=== PATIENT | female | born 1980 | race Caucasian/White ===

== ENCOUNTER 2021-06-22 07:02 | Outpatient (CLI) | payer OTHER ==
[~2021-06-22] VITALS: Ht 160 cm; Wt 71.8 kg
[~2021-06-22 07:02] MED LIST: CLOT21CR6 VG; FERR325T18 PO; HYDR1TAB PO; KETO-22 PO; NITR-65 PO; NITR100C3 PO; PHEN200T27 PO; SULF1TAB38 PO; TYLENOL; [UNRECOGNIZED DRUG - REMARK]
== END 2021-06-23 14:56 | disposition home or self-care (01) ==
LOC: PREOP 07:02
PROVIDERS: ATTEND Obstetrics & Gynecology
DX: Z01.818 Encounter for other preprocedural examination (principal)

== ENCOUNTER 2021-06-30 06:10 | Day surgery (SDC) | payer OTHER ==
[~2021-06-30] VITALS: Ht 160 cm; Wt 71.8 kg
[2021-06-30] VITALS (12 sets, daily range): BP systolic 112–132; BP diastolic 56–79
[2021-06-30] MEDS ORDERED: ceFAZolin INJECTION 1,000 MG in WATER (STERILE) FOR INJECTION 10 ML IV ONE (06:30)
[2021-06-30] MEDS: LACTATED RINGERS 1,000 ML IV PRN ×4 (06:54→19:42)
[2021-06-30 07:04] LABS: BASOPHILS # (AUTO) 0.1 10^3/uL (0.0-0.1); BASOPHILS % (AUTO) 1 % (0-10); EOSINOPHILS # (AUTO) 0.9 10^3/uL (0.0-0.3); EOSINOPHILS % (AUTO) 10 % (0-10); HEMATOCRIT 37 % (35-52); HEMOGLOBIN 10.8 g/dL (11.5-16.0); LYMPHOCYTES # (AUTO) 1.5 10^3/uL (1.0-4.0); LYMPHOCYTES % (AUTO) 16 % (12-44); MEAN CORPUSCULAR HEMOGLOBIN 24 pg (25-34); MEAN CORPUSCULAR HGB CONC 29 g/dL (32-36); MEAN CORPUSCULAR VOLUME 82 fL (80-99); MEAN PLATELET VOLUME 10.1 fL (9.0-12.2); MONOCYTES # (AUTO) 0.8 10^3/uL (0.0-1.0); MONOCYTES % (AUTO) 8 % (0-12); NEUTROPHILS # (AUTO) 5.9 10^3/uL (1.8-7.8); NEUTROPHILS % (AUTO) 64 % (42-75); PLATELET COUNT 359 10^3/uL (130-400); WHITE BLOOD COUNT 9.2 10^3/uL (4.3-11.0)
[2021-06-30] MEDS ORDERED: LIDOCAINE PF 2% 5 ML (XYLOCAINE) VIAL ONE (07:04)
[2021-06-30] MEDS ORDERED: fentaNYL INJ 100 MCG/2 ML AMP ONE ×2 (07:04→09:40)
[2021-06-30] MEDS ORDERED: proPOfol 200 MG/20 ML (DIPRIVAN) VIAL IV ONE (07:04)
[2021-06-30] MEDS ORDERED: ROCURONIUM 10 MG/ML 5 ML SYRINGE IV ONE (07:04)
[2021-06-30] MEDS ORDERED: MIDAZOLAM 2 MG/2 ML (VERSED) VIAL ONE (07:05)
[2021-06-30] MEDS ORDERED: BUPIVACAINE 0.25% 30 ML (SENSORCAINE) VIAL ONE (07:30)
[2021-06-30] MEDS ORDERED: ESTRADIOL VAGINAL CREAM 42.5 GM (ESTRACE) VG ONE (07:31)
[2021-06-30] MEDS ORDERED: OXYC1TAB87 PO (07:41)
[2021-06-30] MEDS ORDERED: IBUP-1780 PO (07:41)
[2021-06-30] MEDS ORDERED: DOCU-143 PO (07:41)
--- NOTE | 2021-06-30 07:43 | Discharge Inst-Surgical ---
Discharge Inst-Surgical Depart Medication/Instructions New, Converted or Re-Newed RX: Transmitted to Pharmacy Consults/Follow Up Patient Instructions: As directed Orders & Referrals Follow Up Appt: Return to clinic on 2020 at 9:30 AM for staple removal Call to make follow up appt. for patient in 4 weeks. Activity: Rest for 24 hours, than as tolerated. Wound Care: May remove Band-Aid tomorrow. Replace as desired. Keep incisions clean and dry. Wash daily with soap and water. Diet: As tolerated shower or tub bathe as desired. No driving for 24 hours, no alcoholic beverages for 24 hours, and nothing per vagina (no tampons, douching, or intercourse) for 8 weeks. Patient to return to the clinic as soon as possible for: Temperature greater than 101F, Severe Pain, Foul discharge from incision or vagina, Excessive Bleeding (more than a period). Activity Activity as Tolerated: No Diet Discharge Diet: No Restrictions JC SANDHU MD Jun 30, 2021 07:43
--- NOTE | 2021-06-30 09:21 | Progress Note-Pre Operative ---
Pre-Operative Progress Note H&P Reviewed The H&P was reviewed, patient examined and no changes noted. Date Seen by Provider: Jun 30, 2021 Time Seen by Provider: 09:21 Date H&P Reviewed: Jun 30, 2021 Time H&P Reviewed: 09:21 Pre-Operative Diagnosis: JOHANN DELAROSA MD Jun 30, 2021 09:21
--- NOTE | 2021-06-30 09:22 | Progress Note-Post Operative ---
Post-Operative Progess Note Surgeon (s)/Senior Lead Developer (s) Surgeon JOHANN LOVE MD Senior Lead Developer: MD EDSON Pre-Operative Diagnosis VIVIEN Post-Operative Diagnosis SAME Procedure & Operative Findings Date of Procedure 06/30/21 Procedure Performed/Findings PVS AND CYSTOSCOPY Anesthesia Type GENERAL Estimated Blood Loss Estimated blood loss (mL): NEGLIGIBLE Specimens/Packing Specimens Removed NONE TO PATH PackinG ESTRACE VAG PACK JOHANN LOVE MD Jun 30, 2021 09:22
[2021-06-30] MEDS ORDERED: ONDANSETRON 4 MG/2 ML (SDV) Z0FRAN ONE (09:33)
[2021-06-30] MEDS ORDERED: NEOSTIGMINE 3 MG/3 ML VIAL ONE (09:33)
[2021-06-30] MEDS ORDERED: GLYCOPYRROLATE 0.2 MG/ML (ROBINUL) 2 ML VIAL ONE (09:33)
[2021-06-30] MEDS ORDERED: SEVOFLURANE (ULTANE) 15 ML INHAL SOLN ONE (09:33)
[2021-06-30] MEDS ORDERED: ONDANSETRON 4 MG/2 ML (SDV) Z0FRAN IVP PRN ×2 (10:15)
[2021-06-30] MEDS ORDERED: ESTROGENS CONJ INJECTION 25 MG in WATER (STERILE) FOR INJECTION 5 ML IV ONE (10:15)
[2021-06-30] MEDS ORDERED: BENZOCAINE/MENTHOL (DERMOPLAST) 56 ML CAN TP PRN (10:15)
[2021-06-30] MEDS ORDERED: D5 LR IV SOLUTION 1,000 ML IV SCH (10:15)
[2021-06-30] MEDS ORDERED: KETOROLAC 30 MG/ML VIAL ONE (10:19)
[2021-06-30] MEDS ORDERED: ESTROGENS CONJ IV 25 MG/5 ML (PREMARIN) VIAL ONE (10:20)
[2021-06-30] MEDS ORDERED: WATER (STERILE) FOR INJECTION 10 ML ONE (10:25)
[2021-06-30] MEDS: KETOROLAC 30 MG/ML VIAL IVP SCH ×3 (10:28→22:53)
[2021-06-30] MEDS: fentaNYL INJ 100 MCG/2 ML AMP IVP PRN ×2 (11:07→12:23)
[2021-06-30] MEDS ORDERED: IBUPROFEN 800 MG (MOTRIN) TAB PO SCH (12:00)
--- NOTE | 2021-06-30 13:01 | OPERATIVE REPORT ---
DATE OF SERVICE: 06/30/2021 PREOPERATIVE DIAGNOSIS: On my part, stress urinary incontinence. POSTOPERATIVE DIAGNOSIS: On my part, stress urinary incontinence. OPERATION PERFORMED: Pubovaginal sling and cystoscopy. SURGEON: Johann Love MD. COMBAT RIFLE CREWMEMBER: Yifan Pro MD ANESTHESIA: General. COMPLICATIONS: None. DESCRIPTION OF PROCEDURE: With the patient after Dr. Pro performed the first part of his surgery that he will dictate, I inserted a catheter draining clear urine. I went ahead and passed the Desara sling device on both sides using the described technique. The sling was sitting nicely under the mid urethra with no twisting, no tension and passage of a hemostat easily between it and the underlying tissue. I removed the Portillo catheter to perform manual Valsalva maneuver after removing the scope as well as confirm the integrity of the ureter, bladder and urethra with no foreign body and the presence of the sling under the mid urethra. The Valsalva test was negative for leakage. I went ahead and reinserted the Portillo catheter draining clear fluid. Estimated blood loss on my part negligible and Dr. Pro proceeded with the rest of his surgery that he will dictate. Job ID: [id number] DocumentID: [id number] Dictated Date: 06/30/2021 09:21:28 Sports Photographer Date: 06/30/2021 13:01:06 Dictated By: JOHANN LOVE MD
--- NOTE | 2021-06-30 15:29 | OPERATIVE REPORT ---
DATE OF SERVICE: 06/30/2021 PREOPERATIVE DIAGNOSES: Dysfunctional uterine bleeding, menorrhagia, uterovaginal prolapse and stress urinary incontinence. POSTOPERATIVE DIAGNOSES: Dysfunctional uterine bleeding, menorrhagia, uterovaginal prolapse and stress urinary incontinence. OPERATIVE PROCEDURES: Total laparoscopic hysterectomy with bilateral salpingectomies as well as biopsy of the left ovary with anterior and posterior vaginal repairs with enterocele repair with Dr. Johnson doing a pubovaginal sling and cystoscopy. OPERATIVE DESCRIPTION: With the patient in the supine position under satisfactory general anesthesia, she was repositioned in a dorsal lithotomy position in the [facility] and prepped and draped in the usual fashion for abdominal and vaginal surgery. Urinary bladder was drained via Portillo catheter to dependent drainage. A weighted speculum was placed in the posterior fornix of vagina, cervix exposed and grasped anteriorly with single tooth tenaculum. Uterus sounded to 16.5 cm with uterine sound. The cervix was then serially dilated with Michael dilators to accommodate a Luli II manipulator, which was placed using a 6 mm x 8 cm uterine probe and a 35 mm colpotomy ring. Sutures of #1 Vicryl were placed at 3 and 9 o'clock position of the cervix to affix the uterus to the manipulator. The patient was brought in a low dorsal lithotomy position. A 12 mm incision was made 10 cm superior to the umbilicus. Veress needle was placed through that incision into the abdominal cavity. Correct placement was confirmed with water drop test. The abdomen was insufflated with 2.4 liters of carbon dioxide. The Veress needle was removed. A 5 mm Optiview laparoscopic port was placed and then ports of 8 mm were placed 8 cm lateral to the umbilicus approximately 3 cm above the level of the umbilicus. The patient was placed in a Trendelenburg allowing the bowel spill out of the pelvis. The da Delores column was advanced on the patient, docked and operative instrument placed in the right and left lateral ports and I retired to the da Delores console. At the console, using the vessel sealer on the right, a bipolar fenestrated grasper on the left, the pelvis was first examined. The uterus was quite large, bulky and lobular, had a large fundal mass that retroverted the uterus and completely filled the pelvis. We could elevate this with some difficulty to see the entire pelvis and the pelvis could be examined. Both the ureters seemed to peristalsing well medial to the IP ligaments. Both ovaries were normal. There was an excrescence on the left ovary that was eventually removed and sent to pathology for permanent section. The appendix was identified. It was a normal vermiform appendix. The laparoscope was brought back to the pelvis. The right fallopian tube was grasped and elevated using the vessel sealer, the mesosalpinx was clamped, cauterized and divided stepwise across to the uteroovarian pedicle. The uteroovarian pedicle was then clamped, cauterized and divided across the round ligament, down the broad ligament and onto the cardinal ligament. Same procedure performed on the left, allowing for conservation of both ovaries and removal of both fallopian tubes that did show evidence of remote tubal sterilization. Anterior lower uterine segment peritoneum was now exposed. The peritoneum was divided with monopolar naresh in place of the vessel sealer. The bladder was carefully dissected down off the lower uterine segment and then colpotomy incision was started at 12 o'clock position of the cervix that was continued circumferentially until the entire colpotomy ring was exposed and then the uterus was extracted with some difficulty through the vagina. The uterus eventually was removed intact with the tubes still attached. The vaginal cuff was now closed with a single suture of V-Loc barbed suture starting from the right angle and continuing across the left angle taking care to ensure inclusion of the uterine vessel pedicles bilaterally. Hemostasis was complete. Good reapproximation was achieved and the last suture was used to bring the bladder peritoneum back down over most ____. At this point, the laparoscopic portion of the procedure was complete and terminated. The operative instruments were removed under direct vision as were the ports. The abdomen was evacuated of insufflating gas in the process of removing the ports. The skin incisions were closed with zachary after closing the fascia at the supraumbilical incision with a [id number] suture of 2-0 Vicryl. The patient was repositioned in a dorsal lithotomy position for the anterior and posterior vaginal repair. Anterior repair was affected by placing a weighted speculum in the posterior fornix of vagina. The Kayleen clamps on the anterior vaginal wall. The vaginal wall was opened in the midline with Metzenbaum scissors. That opening was continued from approximately 1.5 cm from the urethral meatus to the apex of the vagina. A very careful dissection was carried out to the pubic rami bilaterally and then the bladder wall was plicated with 2-0 Vicryl sutures, elevating the bladder wall and reapproximating the endopelvic fascia and lengthening the urethra. At this point, Dr. Johnson assumed care of the patient. I remained to assist. Dr. Johnson performed a pubovaginal sling and cystoscopy with normal findings and confirmed the ureteral efflux bilaterally. He left the Portillo catheter to dependent drainage and then I resumed care of the patient. Redundant anterior vaginal muscularis mucosa was removed sharply. Vaginal wall was closed with running locked suture of 2-0 Vicryl. The posterior repair was now affected by placing Kayleen clamps on the perineum and hymenal ring at 5 and 7 o'clock position. The inverted triangle skin was removed from the perineal body in the upright triangle from the posterior vaginal floor. The rectovaginal space was entered sharply and then dissected bluntly to the apex of the vagina where it was explored. There was a small enterocele. This was reduced and plicated with two pursestring sutures of 2-0 Vicryl obliterating the enterocele. The rectovaginal space was now obliterated with additional sutures of 2-0 Vicryl. The perineal body was restored with 0 sutures as well. Redundant posterior vaginal wall muscularis mucosa was removed sharply. The vaginal wall was closed with running locked suture of 3-0 Vicryl Rapide. That closure was continued down on the perineal body back up to the hymenal ring, where the suture was tied. Digital rectal exam confirmed no stricture or stenosis of the rectum. The vaginal incisions were examined for hemostasis. That being complete, the vagina was filled with Estrace vaginal cream and a pack of Kerlix gauze was placed. Portillo catheter was left to dependent drainage. Sponge and needle counts were correct on completion of the procedure. Blood loss was around 200 mL. The patient tolerated the procedure well and was uneventfully awakened from her general anesthesia and transferred to recovery room in a stable condition. Job ID: [id number] DocumentID: [id number] Dictated Date: 06/30/2021 09:46:57 Crepe Box Tender Date: 06/30/2021 13:36:29 Dictated By: JC SANDHU MD
[2021-06-30] MEDS: oxyCODONE/APAP 5/325MG (PERCOCET 5) TABLET PO PRN (19:41)
[2021-07-01] MEDS: KETOROLAC 30 MG/ML VIAL IVP SCH (04:46)
[2021-07-01 04:56] VITALS: BP 126/65
[2021-07-01] MEDS: oxyCODONE/APAP 5/325MG (PERCOCET 5) TABLET PO PRN ×2 (06:49→14:46)
--- NOTE | 2021-07-01 07:43 | Progress Note ---
Standard Progress Note Progress Notes/Assess & Plan Date Seen by a Provider: Jul 01, 2021 Time Seen by a Provider: 07:42 Progress/Assessment & Plan This patient is without complaint. She is ambulating, tolerating oral intake well has good pain control. Her Portillo catheter has been removed and bladder trial now is ongoing Vital Signs Date Time Temp Pulse Resp B/P (MAP) Pulse Ox O2 Delivery O2 Flow Rate FiO2 07/01/21 04:56 36.4 65 16 126/65 (85) 97 Room Air 06/30/21 23:00 37.4 79 16 130/65 (86) 97 Room Air 06/30/21 20:00 37.2 70 16 132/72 (92) 97 Room Air 06/30/21 16:55 36.8 72 16 131/71 (91) 97 06/30/21 11:54 36.3 52 16 121/62 (81) 96 Room Air 06/30/21 11:47 Room Air 06/30/21 11:30 Room Air 06/30/21 10:55 36.7 57 16 119/58 (78) 98 Room Air 06/30/21 10:40 36.2 16 120/59 (79) 97 Room Air 06/30/21 10:30 16 117/62 (80) 96 Room Air 06/30/21 10:20 16 112/66 (81) 98 OxyMask 2 06/30/21 10:10 18 118/68 (85) 100 OxyMask 4 06/30/21 10:10 OxyMask 4 06/30/21 10:00 18 122/70 (87) 100 OxyMask 6 06/30/21 09:52 OxyMask 6 06/30/21 09:52 37 20 113/56 (75) 100 OxyMask 6 I & O 07/01/21 07:00 Intake Total 5410 ml Output Total 2925 ml Balance 2485 ml Vital signs are stable. Patient is afebrile. The abdomen is benign. Extremities show no clubbing cyanosis. There is no Homans' sign. Assessment and plan Postoperative day #1 status post gynecologic surgery. Patient is doing well so far and providing bladder function proves adequate she will be discharged home today Final Diagnosis Menorrhagia/uterovaginal prolapse/stress urinary incontinence JC SANDHU MD Jul 01, 2021 07:43
[2021-07-01 08:00] VITALS: BP 145/67
[2021-07-01] MEDS ORDERED: DOCUSATE SODIUM 100 MG (COLACE) CAP PO SCH (09:00)
[2021-07-01] MEDS: ONDANSETRON 4 MG (ZOFRAN) ORAL DISSOLVE TAB PO PRN ×2 (09:24→14:45)
--- NOTE | 2021-07-01 09:35 | Progress Note - Urology ---
Progress Note-Urology Progress Notes/Assess & Plan Progress/Assessment & Plan RECOVERING WELL. QUIJANO OUT. DID NOT VOID YET. DRY. INSTRUCTIONS GIVEN. WILL CHECK PVR AND MANAGE ACCORDINGLY Final Diagnosis VIVIEN JOHANN LOVE MD Jul 01, 2021 09:35
--- NOTE | 2021-07-01 12:50 | Anesthesia-General Post-Op ---
General Patient Condition Mental Status/LOC: Same as Preop Cardiovascular: Satisfactory Nausea/Vomiting: Absent Respiratory: Satisfactory Pain: Controlled Complications: Absent Post Op Complications Complications None Follow Up Care/Instructions Patient Instructions None needed. Anesthesia/Patient Condition Patient Condition Patient is doing well, no complaints, stable vital signs, no apparent adverse anesthesia problems. No complications reported per nursing. ELIUD JONES CRNA Jul 01, 2021 12:50
[2021-07-01 14:36] VITALS: BP 141/73
[2021-07-01] MEDS ORDERED: CIPR500S2 PO (16:51)
== END 2021-07-01 17:50 | disposition home or self-care (01) ==
LOC: SDC 06:10 → WS 10:18 → SDC 07-01 17:50
PROVIDERS: ATTEND Obstetrics & Gynecology
DX: N92.0 Excessive and frequent menstruation with regular cycle (principal); D25.0 Submucous leiomyoma of uterus; N80.0 Endometriosis of uterus; N81.4 Uterovaginal prolapse, unspecified; N39.8 Other specified disorders of urinary system; N39.3 Stress incontinence (female) (male); N83.8 Other noninflammatory disorders of ovary, fallopian tube and broad ligament; E04.9 Nontoxic goiter, unspecified; D27.1 Benign neoplasm of left ovary; N92.1 Excessive and frequent menstruation with irregular cycle; Z87.891 Personal history of nicotine dependence; Z98.51 Tubal ligation status; Z83.3 Family history of diabetes mellitus; Z82.49 Family history of ischemic heart disease and other diseases of the circulatory system
CPT/HCPCS: 57260; 57288; 58571; 84703; 85025; 87081; 94664; C1771; 36415